=== PATIENT | female | born 1960 | race American Indian/Alaskan Native ===

== ENCOUNTER 2017-01-29 17:15 | Emergency (ER) | payer MEDICARE, OTHER ==
[2017-01-29 19:36] LABS: Basophils % (Auto) 0.3 % (0.0-1.8); Eosinophils % (Auto) 0.9 % (0.0-4.3); Hematocrit 43.5 % (30.3-42.9); Hemoglobin 14.1 gm/dl (10.1-14.3); Mean Corpuscular HGB Conc 33 % (30-34); Mean Corpuscular Hemoglobin 28 pg (28-32); Mean Corpuscular Volume 86 fl (79-97); Platelet Count 201 K/mm3 (140-440); Red Blood Count 5.09 M/mm3 (3.65-5.03); Red Cell Distribution Width 13.4 % (13.2-15.2); White Blood Count 13.2 K/mm3 (4.5-11.0)
[2017-01-29 19:51] LABS: Anion Gap 19 mmol/L; BUN/Creatinine Ratio 8.88; Blood Urea Nitrogen 8 mg/dL (7-17); Calcium 10.4 mg/dL (8.4-10.2); Carbon Dioxide 21 mmol/L (22-30); Chloride 103.8 mmol/L (98-107); Glucose 93 mg/dL (65-100); Potassium 4.1 mmol/L (3.6-5.0); Sodium 140 mmol/L (137-145)
[2017-01-29] MEDS ORDERED: NACL 0.9% 1000 ML 1,000 ML IV ONE ×2 (20:24→20:56)
[2017-01-29] MEDS ORDERED: KEPPRA 1,000 MG/NS 0.75% 100ML 1,000 MG/100 ML BAG IV ONE (20:25)
[2017-01-29] MEDS ORDERED: TYLENOL PO ONE (20:54)
[2017-01-29 22:03] LABS: Magnesium 2.5 mg/dL (1.7-2.3)
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
[2017-01-30 00:17] VITALS: BP 119/75
== END 2017-01-30 00:17 | disposition home or self-care (01) ==
LOC: ED 17:15
DX: R56.9 Unspecified convulsions (principal); E86.0 Dehydration; M54.6 Pain in thoracic spine; Z90.710 Acquired absence of both cervix and uterus
CPT/HCPCS: 36415; 80048; 82550; 83735; 84484; 85025; 93005; 93010; 96365; 99285; G0480; J1953; J7030; 80320

== ENCOUNTER 2017-11-24 12:41 | Emergency (ER) | payer MEDICARE, OTHER ==
[2017-11-24 13:36] VITALS: BP 130/74
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
== END 2017-11-24 22:30 | disposition left against medical advice (07) ==
LOC: ED 12:41
DX: R05 Cough (principal); R06.02 Shortness of breath
CPT/HCPCS: 93005; 93010; 99282